=== PATIENT | female | born 2000 | race Caucasian/White ===

== ENCOUNTER 2022-01-19 01:49 | Emergency (ER) | payer OTHER ==
[2022-01-19] MEDS ORDERED: ONDANSETRON HCL 4MG/2ML INJ IV STA (04:10)
[2022-01-19] MEDS ORDERED: FAMOTIDINE 20MG/2ML VIAL IV STA (04:10)
[2022-01-19] MEDS ORDERED: SODIUM CHLORIDE 0.9% 1,000 ML IV ONE (04:15)
[2022-01-19] MEDS ORDERED: MORPHINE SULFATE 4 MG/ML CPJ (NOT FOR IM USE) IV ONE (04:45)
[2022-01-19 04:50] LABS: CHLORIDE 108 mEq/L (98-107)
[2022-01-19 04:56] LABS: HEMATOCRIT. 41.2 % (36.0-48.0); MEAN CORPUSCULAR HEMOGLOBIN 27.9 pg (28.0-32.0); MEAN CORPUSCULAR VOLUME 82.3 fL (81.0-99.0); MEAN PLATELET VOLUME 8.3 fl (7.4-10.4); PLATELET 292 x1000/uL (130-400); RED BLOOD CELL COUNT 5.01 mill/uL (4.2-5.4); RED CELL DISTRIBUTION WIDTH 13.3 % (11.6-14.6)
[2022-01-19 04:59] LABS: PLATELET ESTIMATE NORMAL
[2022-01-19 05:20] LABS: HCG SCREEN NEGATIVE
[2022-01-19 06:35] LABS: CLARITY URINE CLEAR (CLEAR); COLOR URINE YELLOW (YELLOW); KETONES URINE NEGATIVE (NEGATIVE); LEUKOCYTE ESTERASE URINE NEGATIVE (NEGATIVE); NITRITE URINE NEGATIVE (NEGATIVE); OCCULT BLOOD URINE NEGATIVE (NEGATIVE); PROTEIN URINE NEGATIVE (NEGATIVE); SPECIFIC GRAVITY URINE 1.025 (1.005-1.030)
[2022-01-19] MEDS ORDERED: FAMO-135 MT (06:38)
[2022-01-19] MEDS ORDERED: ONDA4TAB5 MT (06:38)
[2022-01-19 07:49] VITALS: BP 116/58
== END 2022-01-19 07:57 | disposition home or self-care (01) ==
LOC: ER 01:49
DX: R10.9 Unspecified abdominal pain (principal); R11.2 Nausea with vomiting, unspecified; K76.0 Fatty (change of) liver, not elsewhere classified; K82.4 Cholesterolosis of gallbladder; D72.829 Elevated white blood cell count, unspecified
CPT/HCPCS: 36415; 76705; 80053; 81003; 81025; 83690; 84703; 85025; 96361; 96374; 96375; 99284; J2270; J2405; J3490; J7030